=== PATIENT | female | born 1965 | race Caucasian/White ===

== ENCOUNTER 2022-02-22 21:20 | Emergency (ER) | payer BC ==
[2022-02-22 23:06] LABS: INR-International Normal Ratio 1.6; PTT 45.3 sec (22.0-33.0); Prothrombin Time 17.2 sec (9.5-12.1)
[2022-02-22 23:07] LABS: ALT (SGPT) 19 U/L (8-55); AST (SGOT) 49 U/L (5-34); Albumin 2.4 g/dL (3.5-5.0); Alkaline Phosphatase 96 U/L (40-110); Anion Gap 13 mmol/L (10-20); BUN (Urea Nitrogen) 18 mg/dL (9.8-20.1); Bilirubin, Total 6.2 mg/dL (0.2-1.2); Calc. Creatinine Clearance 0 mL/min (70-130); Calcium 9.3 mg/dL (7.8-10.44); Carbon Dioxide 19 mmol/L (22-29); Chloride 107 mmol/L (98-107); Globulin 5.1 g/dL (2.4-3.5); Glucose 93 mg/dL (70-105); Potassium 4.4 mmol/L (3.5-5.1); Protein, Total 7.5 g/dL (6.0-8.3); Sodium 135 mmol/L (136-145)
[2022-02-22 23:18] LABS: #Eosinphils 0.1 10x3/uL (0.0-0.5); #Monocytes 1.2 10x3/uL (0.0-1.1); #Neutrophils 5.8 10x3/uL (1.5-8.4); %Basophils 0.3 % (0.0-2.0); %Monocytes 14.8 % (0.0-10.0); %Neutrophils 73.3 % (40.0-75.0); Hemoglobin 7.9 g/dL (12.0-15.5); Mean Corpuscular HGB CONC 32.8 g/dL (32.0-36.0); Mean Corpuscular Hemoglobin 32.5 pg (27.0-33.0); Mean Corpuscular Volume 99.2 fl (81.6-98.3); Mean Platelet Volume 10.7 fl (7.4-10.4); Platelet Count 110 10x3/uL (150-450); RBC Distribution Width 20.3 % (11.5-14.5); Red Blood Cell (RBC) Count 2.43 10x6/uL (3.90-5.03); White Blood Cell (WBC) Count 7.9 10x3/uL (3.5-10.5)
== END 2022-02-23 03:00 | disposition home or self-care (01) ==
LOC: CSHERS 21:20
DX: K70.30 Alcoholic cirrhosis of liver without ascites (principal); F10.20 Alcohol dependence, uncomplicated; D64.89 Other specified anemias
CPT/HCPCS: 36415; 71045; 80053; 85025; 85610; 85730; 86850; 86900; 86901

== ENCOUNTER 2022-03-01 14:41 | Inpatient (IN) | payer BC ==
[2022-03-01 16:01] LABS: #Eosinphils 0.1 10x3/uL (0.0-0.5); #Monocytes 1.2 10x3/uL (0.0-1.1); #Neutrophils 7.4 10x3/uL (1.5-8.4); %Basophils 0.3 % (0.0-2.0); %Eosinophils 0.5 % (0.0-6.0); %Lymphocytes 8.9 % (18.0-47.0); %Monocytes 12.3 % (0.0-10.0); %Neutrophils 77.5 % (40.0-75.0); Hemoglobin 6.4 g/dL (12.0-15.5); Mean Corpuscular HGB CONC 29.9 g/dL (32.0-36.0); Mean Corpuscular Hemoglobin 31.5 pg (27.0-33.0); Mean Corpuscular Volume 105.4 fl (81.6-98.3); Mean Platelet Volume 9.9 fl (7.4-10.4); Platelet Count 109 10x3/uL (150-450); RBC Distribution Width 19.4 % (11.5-14.5); Red Blood Cell (RBC) Count 2.03 10x6/uL (3.90-5.03); White Blood Cell (WBC) Count 9.6 10x3/uL (3.5-10.5)
[2022-03-01 16:14] LABS: ALT (SGPT) 18 U/L (8-55); AST (SGOT) 60 U/L (5-34); Albumin 2.4 g/dL (3.5-5.0); Alkaline Phosphatase 93 U/L (40-110); Anion Gap 15 mmol/L (10-20); BUN (Urea Nitrogen) 13 mg/dL (9.8-20.1); Bilirubin, Total 8.1 mg/dL (0.2-1.2); Calc. Creatinine Clearance 0 mL/min (70-130); Calcium 9.4 mg/dL (7.8-10.44); Carbon Dioxide 18 mmol/L (22-29); Chloride 108 mmol/L (98-107); Globulin 5.3 g/dL (2.4-3.5); Glucose 113 mg/dL (70-105); Lipase 41 U/L (8-78); Potassium 3.8 mmol/L (3.5-5.1); Protein, Total 7.7 g/dL (6.0-8.3); Sodium 137 mmol/L (136-145)
[2022-03-01 16:15] LABS: Acetaminophen Less than 10.0 mcg/mL (10.0-30.0); Alcohol Less than 10 mg/dL (Less than 10); CK (CPK) 9 U/L (29-168); Salicylate Less than 8.0 mg/dL (15.0-30.0)
[2022-03-01 16:28] LABS: Hypochromia SLIGHT = 6-15 cells (100X) (0-5/hpf); Macrocytosis SLIGHT = 6-15 cells (100X) (0-5/hpf)
[2022-03-01 16:32] LABS: INR-International Normal Ratio 1.6; PTT 35.7 sec (22.0-33.0); Prothrombin Time 17.2 sec (9.5-12.1)
[2022-03-01] MEDS ORDERED: Ondansetron PF 4 MG/2 ML Vial IVP PRN (17:44)
[2022-03-01] MEDS ORDERED: Senokot S 8.6-50 MG TAB PO PRN (17:44)
[2022-03-01 17:46] LABS: Bilirubin 1+ (Negative); Blood, Urine 250 (Negative); Clarity Clear (Clear); Glucose, Urine (Dipstick) Normal (Negative); Ketone, Urine Negative (Negative); Leukocyte 25 (Negative); Nitrite Negative (Negative); Protein, Urine (Dipstick) 15 mg/dl (Neg-Trace); Specific Gravity, Urine 1.015 (1.002-1.036)
[2022-03-01 17:57] LABS: Amphetamine Not Detected (NotDetected); Barbiturates Screen Not Detected (NotDetected); Benzodiazepine Screen Not Detected (NotDetected); Cocaine Metabolite Screen Not Detected (NotDetected); Methadone Not Detected (NotDetected); Methamphetamine Not Detected (NotDetected); Opiate Screen Not Detected (NotDetected); Oxycodone Screen Not Detected (NotDetected); Phencyclidine (PCP) Not Detected (NotDetected); THC/Cannabinoid Screen Not Detected (NotDetected); Tricyclic Screen Not Detected (NotDetected)
[2022-03-01] MEDS ORDERED: Vancomycin HCl 500 MG VIAL ONE (18:24)
[2022-03-01] MEDS ORDERED: Cefepime 2 GM VIAL ONE (18:24)
[2022-03-01 18:28] LABS: Bacteria/HPF 1+ HPF (None Seen); RBC/HPF 21-50 HPF (0-3); WBC/HPF 0-3 HPF (0-3)
[2022-03-01 19:18] LABS: Lactic Acid 1.7 mmol/L (0.5-2.2)
[2022-03-01] MEDS ORDERED: Rifaximin 550 MG TAB PO SCH (21:45)
[2022-03-01 21:48] VITALS: BMI 23.3
[2022-03-01] MEDS: cefTRIAXone\\ROCEPHIN 1 GM in Sodium Chloride 0.9% 100 ML IVPB SCH (22:10)
[2022-03-02 04:51] LABS: #Eosinphils 0.1 10x3/uL (0.0-0.5); #Monocytes 0.9 10x3/uL (0.0-1.1); #Neutrophils 5.3 10x3/uL (1.5-8.4); %Basophils 0.4 % (0.0-2.0); %Eosinophils 1.3 % (0.0-6.0); %Lymphocytes 9.3 % (18.0-47.0); %Monocytes 13.1 % (0.0-10.0); %Neutrophils 75.5 % (40.0-75.0); Hemoglobin 7.1 g/dL (12.0-15.5); Mean Corpuscular HGB CONC 31.8 g/dL (32.0-36.0); Mean Corpuscular Hemoglobin 32.1 pg (27.0-33.0); Mean Corpuscular Volume 100.9 fl (81.6-98.3); RBC Distribution Width 18.8 % (11.5-14.5); Red Blood Cell (RBC) Count 2.21 10x6/uL (3.90-5.03)
[2022-03-02 04:52] LABS: Platelet Count 101 10x3/uL (150-450)
[2022-03-02 05:09] LABS: ALT (SGPT) 14 U/L (8-55); AST (SGOT) 50 U/L (5-34); Alkaline Phosphatase 89 U/L (40-110); Anion Gap 12 mmol/L (10-20); BUN (Urea Nitrogen) 13 mg/dL (9.8-20.1); Bilirubin, Total 7.7 mg/dL (0.2-1.2); Calc. Creatinine Clearance 60 mL/min (70-130); Calcium 8.9 mg/dL (7.8-10.44); Carbon Dioxide 19 mmol/L (22-29); Chloride 112 mmol/L (98-107); Globulin 4.7 g/dL (2.4-3.5); Glucose 96 mg/dL (70-105); Potassium 3.3 mmol/L (3.5-5.1); Protein, Total 6.7 g/dL (6.0-8.3); Sodium 140 mmol/L (136-145)
[2022-03-02] MEDS: Rifaximin 550 MG TAB PO SCH ×2 (07:57→21:53)
[2022-03-02] MEDS: Spironolactone 25 MG TAB PO SCH (07:58)
[2022-03-02] MEDS ORDERED: Famotidine 20 MG TAB PO SCH ×2 (09:00→21:00)
[2022-03-02 11:36] LABS: Iron 50 ug/dL (50-170)
[2022-03-02 11:41] LABS: Iron Binding Capacity, Total 44 mcg/dL (265-497)
[2022-03-02] MEDS ORDERED: Lidocaine 1% PF 5 ML VIAL ONE (13:26)
[2022-03-02] MEDS ORDERED: Sodium Bicarbonate 2.5 MEQ/5 ML VIAL ONE (13:26)
[2022-03-02 15:27] LABS: BF Color Red; Body Fluid Source Ascites Body Fluid; Clarity Cloudy/Turbid (Clear); Tube # EDTA
[2022-03-02 15:31] LABS: SARS-CoV-2 PCR by NAA Not Detected (NotDetected)
[2022-03-02 16:37] LABS: BF Segmented Neutrophils 75 %; Cell Count Non Hematic 1 %; Lymphocytes 24 %
[2022-03-02] MEDS: cefTRIAXone\\ROCEPHIN 1 GM in Sodium Chloride 0.9% 100 ML IVPB SCH (21:59)
[2022-03-03 04:12] LABS: #Eosinphils 0.2 10x3/uL (0.0-0.5); #Monocytes 0.9 10x3/uL (0.0-1.1); #Neutrophils 8.4 10x3/uL (1.5-8.4); %Basophils 0.3 % (0.0-2.0); %Eosinophils 1.9 % (0.0-6.0); %Lymphocytes 6.2 % (18.0-47.0); %Monocytes 8.5 % (0.0-10.0); %Neutrophils 82.6 % (40.0-75.0); Hemoglobin 7.2 g/dL (12.0-15.5); Mean Corpuscular HGB CONC 31.6 g/dL (32.0-36.0); Mean Corpuscular Hemoglobin 32.1 pg (27.0-33.0); Mean Corpuscular Volume 101.8 fl (81.6-98.3); Mean Platelet Volume 10.3 fl (7.4-10.4); Platelet Count 82 10x3/uL (150-450); Red Blood Cell (RBC) Count 2.24 10x6/uL (3.90-5.03); White Blood Cell (WBC) Count 10.1 10x3/uL (3.5-10.5)
[2022-03-03 04:24] LABS: ALT (SGPT) 13 U/L (8-55); AST (SGOT) 50 U/L (5-34); Albumin 1.9 g/dL (3.5-5.0); Alkaline Phosphatase 84 U/L (40-110); Anion Gap 12 mmol/L (10-20); BUN (Urea Nitrogen) 11 mg/dL (9.8-20.1); Bilirubin, Total 7.3 mg/dL (0.2-1.2); Calc. Creatinine Clearance 67 mL/min (70-130); Calcium 8.7 mg/dL (7.8-10.44); Carbon Dioxide 16 mmol/L (22-29); Chloride 113 mmol/L (98-107); Globulin 4.6 g/dL (2.4-3.5); Glucose 87 mg/dL (70-105); Potassium 3.3 mmol/L (3.5-5.1); Protein, Total 6.5 g/dL (6.0-8.3); Sodium 138 mmol/L (136-145)
[2022-03-03] MEDS: Rifaximin 550 MG TAB PO SCH ×2 (08:55→20:47)
[2022-03-03] MEDS: Cyclobenzaprine 10 MG TAB PO SCH ×2 (08:56→20:48)
[2022-03-03] MEDS: Spironolactone 25 MG TAB PO SCH ×2 (08:56→09:54)
[2022-03-03] MEDS: traMADol HCl 50 MG TAB PO PRN (17:12)
[2022-03-03] MEDS ORDERED: Morphine PF 10 MG/10 ML VIAL ONE (18:46)
[2022-03-03] MEDS ORDERED: PHENYLEPHRINE-NS 100 MCG/ML 10 ML SYRINGE ONE (18:47)
[2022-03-03] MEDS ORDERED: Fentanyl 100 MCG/2 ML VIAL ONE (18:47)
[2022-03-03] MEDS ORDERED: Oxytocin 10 UNITS/ML VIAL ONE ×2 (18:47→20:04)
[2022-03-03] MEDS ORDERED: Phenylephrine 40 MG/NS 250 ML 0 ML ONE (18:47)
[2022-03-03] MEDS ORDERED: ePHEDrine Sulfate 50 MG/10 ML VIAL ONE (18:48)
[2022-03-03] MEDS ORDERED: Ketorolac Tromethamine 30 MG/ML VIAL ONE (20:07)
[2022-03-03] MEDS: cefTRIAXone\\ROCEPHIN 1 GM in Sodium Chloride 0.9% 100 ML IVPB SCH (22:29)
[2022-03-04 03:34] LABS: INR-International Normal Ratio 1.8; Prothrombin Time 18.8 sec (9.5-12.1)
[2022-03-04 03:50] LABS: #Eosinphils 0.2 10x3/uL (0.0-0.5); #Monocytes 0.9 10x3/uL (0.0-1.1); #Neutrophils 5.4 10x3/uL (1.5-8.4); %Basophils 0.4 % (0.0-2.0); %Eosinophils 3.1 % (0.0-6.0); %Lymphocytes 8.6 % (18.0-47.0); %Monocytes 11.9 % (0.0-10.0); %Neutrophils 75.7 % (40.0-75.0); Hemoglobin 7.9 g/dL (12.0-15.5); Mean Corpuscular HGB CONC 31.2 g/dL (32.0-36.0); Mean Corpuscular Hemoglobin 31.7 pg (27.0-33.0); Mean Corpuscular Volume 101.6 fl (81.6-98.3); Mean Platelet Volume 10.4 fl (7.4-10.4); Platelet Count 74 10x3/uL (150-450); RBC Distribution Width 18.9 % (11.5-14.5); Red Blood Cell (RBC) Count 2.49 10x6/uL (3.90-5.03); White Blood Cell (WBC) Count 7.2 10x3/uL (3.5-10.5)
[2022-03-04] MEDS: Spironolactone 25 MG TAB PO SCH (08:43)
[2022-03-04] MEDS: Rifaximin 550 MG TAB PO SCH ×2 (08:43→21:21)
[2022-03-04] MEDS: Cyclobenzaprine 10 MG TAB PO SCH ×2 (08:43→21:20)
[2022-03-04 12:11] LABS: ALT (SGPT) 16 U/L (8-55); AST (SGOT) 59 U/L (5-34); Albumin 2.2 g/dL (3.5-5.0); Alkaline Phosphatase 99 U/L (40-110); Anion Gap 14 mmol/L (10-20); BUN (Urea Nitrogen) 11 mg/dL (9.8-20.1); Bilirubin, Total 6.8 mg/dL (0.2-1.2); Calc. Creatinine Clearance 61 mL/min (70-130); Calcium 8.7 mg/dL (7.8-10.44); Carbon Dioxide 16 mmol/L (22-29); Chloride 109 mmol/L (98-107); Globulin 5.2 g/dL (2.4-3.5); Glucose 109 mg/dL (70-105); Potassium 3.4 mmol/L (3.5-5.1); Protein, Total 7.4 g/dL (6.0-8.3); Sodium 136 mmol/L (136-145)
[2022-03-04] MEDS ORDERED: Iopamidol 300 61% 100 ML VIAL FS ONE (12:24)
[2022-03-04] MEDS ORDERED: Potassium Chloride 20 MEQ TAB PO SCH (16:00)
[2022-03-04] MEDS: cefTRIAXone\\ROCEPHIN 1 GM in Sodium Chloride 0.9% 100 ML IVPB SCH (21:20)
[2022-03-05 05:01] LABS: #Eosinphils 0.3 10x3/uL (0.0-0.5); #Monocytes 0.9 10x3/uL (0.0-1.1); #Neutrophils 5.6 10x3/uL (1.5-8.4); %Basophils 0.3 % (0.0-2.0); %Lymphocytes 9.3 % (18.0-47.0); %Monocytes 11.9 % (0.0-10.0); Hemoglobin 7.3 g/dL (12.0-15.5); Mean Corpuscular HGB CONC 31.9 g/dL (32.0-36.0); Mean Corpuscular Hemoglobin 32.2 pg (27.0-33.0); Mean Corpuscular Volume 100.9 fl (81.6-98.3); Mean Platelet Volume 10.1 fl (7.4-10.4); Platelet Count 73 10x3/uL (150-450); RBC Distribution Width 18.5 % (11.5-14.5); Red Blood Cell (RBC) Count 2.27 10x6/uL (3.90-5.03); White Blood Cell (WBC) Count 7.6 10x3/uL (3.5-10.5)
[2022-03-05 05:05] LABS: ALT (SGPT) 15 U/L (8-55); AST (SGOT) 53 U/L (5-34); Albumin 1.9 g/dL (3.5-5.0); Alkaline Phosphatase 83 U/L (40-110); Anion Gap 10 mmol/L (10-20); BUN (Urea Nitrogen) 11 mg/dL (9.8-20.1); Bilirubin, Total 5.6 mg/dL (0.2-1.2); Calc. Creatinine Clearance 72 mL/min (70-130); Calcium 8.5 mg/dL (7.8-10.44); Carbon Dioxide 17 mmol/L (22-29); Chloride 110 mmol/L (98-107); Globulin 4.7 g/dL (2.4-3.5); Glucose 89 mg/dL (70-105); Potassium 3.2 mmol/L (3.5-5.1); Protein, Total 6.6 g/dL (6.0-8.3); Sodium 134 mmol/L (136-145)
[2022-03-05] MEDS ORDERED: Phytonadione 10 MG/ML AMP SC SCH (08:00)
[2022-03-05] MEDS ORDERED: Potassium Chloride 20 MEQ TAB PO SCH (08:15)
[2022-03-05] MEDS: Thiamine 100 MG TAB PO SCH (08:59)
[2022-03-05] MEDS: Cyclobenzaprine 10 MG TAB PO SCH ×2 (08:59→21:35)
[2022-03-05] MEDS: traMADol HCl 50 MG TAB PO PRN ×2 (08:59→21:35)
[2022-03-05] MEDS: Spironolactone 25 MG TAB PO SCH (09:00)
[2022-03-05] MEDS: Sodium Bicarbonate Tab 325 MG TAB PO SCH ×2 (09:00→21:36)
[2022-03-05] MEDS: Rifaximin 550 MG TAB PO SCH ×2 (09:00→21:35)
[2022-03-05 12:22] LABS: Hemoglobin 7.3 g/dL (12.0-15.5); Platelet Count 60 10x3/uL (150-450)
[2022-03-05 12:35] LABS: INR-International Normal Ratio 1.7; Prothrombin Time 17.5 sec (9.5-12.1)
[2022-03-05 21:00] LABS: Hemoglobin 7.4 g/dL (12.0-15.5)
[2022-03-05 21:10] LABS: Platelet Count 66 10x3/uL (150-450)
[2022-03-05] MEDS: cefTRIAXone\\ROCEPHIN 1 GM in Sodium Chloride 0.9% 100 ML IVPB SCH (21:36)
[2022-03-06 04:04] LABS: #Eosinphils 0.2 10x3/uL (0.0-0.5); #Monocytes 0.8 10x3/uL (0.0-1.1); #Neutrophils 4.4 10x3/uL (1.5-8.4); %Basophils 0.3 % (0.0-2.0); %Eosinophils 3.5 % (0.0-6.0); %Lymphocytes 10.3 % (18.0-47.0); %Monocytes 13.1 % (0.0-10.0); %Neutrophils 72.5 % (40.0-75.0); Hemoglobin 7.2 g/dL (12.0-15.5); Mean Corpuscular HGB CONC 31.4 g/dL (32.0-36.0); Mean Corpuscular Hemoglobin 31.4 pg (27.0-33.0); Mean Platelet Volume 9.9 fl (7.4-10.4); Platelet Count 67 10x3/uL (150-450); RBC Distribution Width 18.1 % (11.5-14.5); Red Blood Cell (RBC) Count 2.29 10x6/uL (3.90-5.03)
[2022-03-06 04:09] LABS: INR-International Normal Ratio 1.6; Prothrombin Time 17.2 sec (9.5-12.1)
[2022-03-06 04:28] LABS: ALT (SGPT) 14 U/L (8-55); AST (SGOT) 51 U/L (5-34); Alkaline Phosphatase 80 U/L (40-110); Anion Gap 12 mmol/L (10-20); BUN (Urea Nitrogen) 11 mg/dL (9.8-20.1); Bilirubin, Total 5.8 mg/dL (0.2-1.2); Calc. Creatinine Clearance 82 mL/min (70-130); Calcium 8.3 mg/dL (7.8-10.44); Carbon Dioxide 18 mmol/L (22-29); Chloride 109 mmol/L (98-107); Globulin 4.4 g/dL (2.4-3.5); Glucose 82 mg/dL (70-105); Magnesium 1.6 mg/dL (1.6-2.6); Potassium 3.5 mmol/L (3.5-5.1); Protein, Total 6.4 g/dL (6.0-8.3); Sodium 135 mmol/L (136-145)
[2022-03-06] MEDS: Cyclobenzaprine 10 MG TAB PO SCH ×2 (08:27→20:40)
[2022-03-06] MEDS: Spironolactone 25 MG TAB PO SCH (08:27)
[2022-03-06] MEDS: traMADol HCl 50 MG TAB PO PRN (08:27)
[2022-03-06] MEDS: Rifaximin 550 MG TAB PO SCH ×2 (08:27→20:40)
[2022-03-06] MEDS: Sodium Bicarbonate Tab 325 MG TAB PO SCH ×2 (08:27→20:40)
[2022-03-06] MEDS: Thiamine 100 MG TAB PO SCH (08:27)
[2022-03-06] MEDS: cefTRIAXone\\ROCEPHIN 1 GM in Sodium Chloride 0.9% 100 ML IVPB SCH (22:07)
[2022-03-07 04:00] LABS: #Eosinphils 0.4 10x3/uL (0.0-0.5); #Monocytes 0.8 10x3/uL (0.0-1.1); #Neutrophils 4.2 10x3/uL (1.5-8.4); %Basophils 0.5 % (0.0-2.0); %Eosinophils 5.7 % (0.0-6.0); %Lymphocytes 13.2 % (18.0-47.0); %Monocytes 12.3 % (0.0-10.0); %Neutrophils 67.8 % (40.0-75.0); Hemoglobin 8.5 g/dL (12.0-15.5); Mean Corpuscular HGB CONC 32.1 g/dL (32.0-36.0); Mean Corpuscular Hemoglobin 32.4 pg (27.0-33.0); Mean Corpuscular Volume 101.1 fl (81.6-98.3); Mean Platelet Volume 9.9 fl (7.4-10.4); Platelet Count 75 10x3/uL (150-450); RBC Distribution Width 18.2 % (11.5-14.5); Red Blood Cell (RBC) Count 2.62 10x6/uL (3.90-5.03); White Blood Cell (WBC) Count 6.1 10x3/uL (3.5-10.5)
[2022-03-07 04:14] LABS: ALT (SGPT) 16 U/L (8-55); AST (SGOT) 59 U/L (5-34); Albumin 2.1 g/dL (3.5-5.0); Alkaline Phosphatase 86 U/L (40-110); Anion Gap 11 mmol/L (10-20); BUN (Urea Nitrogen) 11 mg/dL (9.8-20.1); Bilirubin, Total 5.9 mg/dL (0.2-1.2); Calc. Creatinine Clearance 74 mL/min (70-130); Calcium 8.6 mg/dL (7.8-10.44); Carbon Dioxide 18 mmol/L (22-29); Chloride 107 mmol/L (98-107); Globulin 4.8 g/dL (2.4-3.5); Glucose 84 mg/dL (70-105); Potassium 3.4 mmol/L (3.5-5.1); Protein, Total 6.9 g/dL (6.0-8.3); Sodium 133 mmol/L (136-145)
[2022-03-07 07:11] VITALS: BP 114/55; TEMP 98.4
[2022-03-07] MEDS: Thiamine 100 MG TAB PO SCH (08:19)
[2022-03-07] MEDS: Cyclobenzaprine 10 MG TAB PO SCH (08:19)
[2022-03-07] MEDS: Spironolactone 25 MG TAB PO SCH (08:20)
[2022-03-07] MEDS: Sodium Bicarbonate Tab 325 MG TAB PO SCH (08:20)
[2022-03-07] MEDS: traMADol HCl 50 MG TAB PO PRN (08:20)
[2022-03-07] MEDS: Rifaximin 550 MG TAB PO SCH (08:20)
== END 2022-03-07 11:19 | DRG 432 ==
LOC: CSHERS 14:41 → CSHTELE 21:34
PROVIDERS: ADMIT Family Medicine; ATTEND Family Medicine
PROC: 0W9G3ZZ Drainage of Peritoneal Cavity, Percutaneous Approach (ICD-10-PCS; principal; 2022-03-01)
PROC: 30233N1 Transfusion of Nonautologous Red Blood Cells into Peripheral Vein, Percutaneous Approach (ICD-10-PCS; 2022-03-02)
PROC: 30233K1 Transfusion of Nonautologous Frozen Plasma into Peripheral Vein, Percutaneous Approach (ICD-10-PCS; 2022-03-05)
DX: K70.31 Alcoholic cirrhosis of liver with ascites (principal); K72.00 Acute and subacute hepatic failure without coma; G93.41 Metabolic encephalopathy; I85.00 Esophageal varices without bleeding; C78.6 Secondary malignant neoplasm of retroperitoneum and peritoneum; D62 Acute posthemorrhagic anemia; N28.9 Disorder of kidney and ureter, unspecified; F10.20 Alcohol dependence, uncomplicated; D52.0 Dietary folate deficiency anemia; I10 Essential (primary) hypertension; E78.5 Hyperlipidemia, unspecified; F32.A Depression, unspecified; K64.4 Residual hemorrhoidal skin tags; F41.9 Anxiety disorder, unspecified; K76.89 Other specified diseases of liver; R79.1 Abnormal coagulation profile; M79.81 Nontraumatic hematoma of soft tissue; D73.5 Infarction of spleen; Z20.822 Contact with and (suspected) exposure to COVID-19; Z98.890 Other specified postprocedural states; Z79.899 Other long term (current) drug therapy
CPT/HCPCS: 36415; 36430; 49083; 70450; 70551; 71045; 74177; 76705; 80053; 80306; 80307; 81003; 81015; 82042; 82140; 82274; 82550; 82728; 83540; 83550; 83605; 83690; 83735; 84157; 84443; 84484; 85025; 85610; 85730; 86850; 86900; 86901; 87040; 87070; 87086; 87205; 88112; 88305; 89051; 93005; 96365; 96366; 96367; J0692; J0696; J1885; J2274; J2405; J2590; J3010; J3370; J3430; J3490; P9016; P9059; Q9967; U0003; U0005